=== PATIENT | female | born 1965 | race Caucasian/White ===

== ENCOUNTER → 2021-08-04 | Day surgery (SDC) | payer OTHER ==
[2021-08-02 07:40] LABS: Basophils # (auto) 0.1 10 ^3/uL (0-0.2); Eosinophils # (auto) 0.3 10 ^3/uL (0-0.8); Eosinophils % (auto) 4.9 % (0.0-7.0); Hemoglobin 13.9 g/dL (12.2-16.2); Lymphocytes # (auto) 1.8 10 ^3/uL (0.4-5.4); Lymphocytes % (auto) 31.6 % (10.0-50.0); Mean Corpuscular Hemoglobin 29.6 pg (28.0-32.0); Mean Corpuscular Hgb Conc. 33.1 g/dL (32.0-36.0); Mean Corpuscular Volume 89.3 fL (80.0-100.0); Monocytes # (auto) 0.4 10 ^3/uL (0-1.3); Monocytes % (auto) 7.5 % (0.0-12.0); Neutrophils # (auto) 3.1 10 ^3/uL (1.6-8.6); Red Cell Distribution Width 13.7 % (11.8-14.3); White Blood Cell 5.6 10^3/uL (4.4-10.8)
[2021-08-02 07:56] LABS: INR 0.94 (0.9-1.15); Partial Thromboplastin Time 27.6 sec (23.6-33.0)
[2021-08-02 08:00] LABS: Potassium 4.2 mmol/L (3.5-5.1)
[2021-08-02 08:06] LABS: Albumin 4.1 g/dL (3.4-5.0); BUN/Creatinine Ratio 14.9; Bilirubin, Total 0.6 mg/dL (0.2-1.0); Calcium 10.1 mg/dL (8.5-10.1); Total Protein 7.1 g/dL (6.4-8.2)
[~2021-08-04] VITALS: Ht 167.6 cm; Wt 86.2 kg
[~2021-08-04] MED LIST: LIDOCAINE VISCOUS 2% 15ML UD ONE; OMEP-434 PO
[2021-08-04] MEDS: diphenhdrAMINE HCL 50 MG/1 ML VL ONE ×2 (14:06→14:09)
[2021-08-04] MEDS: MIDAZOLAM HCL 5 MG/ML-1ML VIAL ONE ×3 (14:06→14:12)
[2021-08-04] MEDS: fentaNYL CITRATE 100 MCG/2 ML VL ONE ×2 (14:06→14:09)
[2021-08-04 14:45] VITALS: BP 111/67
== END | disposition home or self-care (01) ==
LOC: GI 12:34
PROVIDERS: ATTEND Internal Medicine Gastroenterology
DX: K21.9 Gastro-esophageal reflux disease without esophagitis (principal)
CPT/HCPCS: 36415; 43239; 80053; 85025; 85610; 85730; 88305; 88342; J1200; J2250; J3010; J7030; U0003; 99152

== ENCOUNTER 2021-11-03 12:26 | Day surgery (SDC) | payer OTHER ==
[2021-11-01 14:30] LABS: Basophils # (auto) 0 10 ^3/uL (0-0.2); Basophils % (auto) 0.6 % (0.0-2.0); Eosinophils # (auto) 0.2 10 ^3/uL (0-0.8); Eosinophils % (auto) 2.8 % (0.0-7.0); Hematocrit 38.6 % (36.0-46.0); Hemoglobin 13.3 g/dL (12.2-16.2); Lymphocytes # (auto) 1.7 10 ^3/uL (0.4-5.4); Lymphocytes % (auto) 26.2 % (10.0-50.0); Mean Corpuscular Hemoglobin 30.7 pg (28.0-32.0); Mean Corpuscular Hgb Conc. 34.5 g/dL (32.0-36.0); Mean Corpuscular Volume 89.2 fL (80.0-100.0); Monocytes # (auto) 0.4 10 ^3/uL (0-1.3); Monocytes % (auto) 5.5 % (0.0-12.0); Neutrophils # (auto) 4.2 10 ^3/uL (1.6-8.6); Neutrophils % (auto) 64.9 % (37.0-80.0); Nucleated Red Blood Cells % 0.1 %; Red Blood Cells 4.33 10^6/uL (4.0-5.20); Red Cell Distribution Width 13.4 % (11.8-14.3); White Blood Cell 6.5 10^3/uL (4.4-10.8)
[2021-11-01 14:47] LABS: INR 0.99 (0.9-1.15)
[2021-11-01 15:17] LABS: BUN/Creatinine Ratio 13.3; Calcium 9.2 mg/dL (8.5-10.1)
[2021-11-01 15:20] LABS: Bilirubin, Total 0.3 mg/dL (0.2-1.0); Total Protein 7.3 g/dL (6.4-8.2)
[~2021-11-03] VITALS: Ht 167.6 cm; Wt 86.2 kg
[~2021-11-03 12:26] MED LIST changes: -LIDOCAINE VISCOUS 2% 15ML UD ONE
[2021-11-03] MEDS ORDERED: SODIUM CHLORIDE LOCK 10 ML ONE (12:40)
[2021-11-03] MEDS ORDERED: diphenhdrAMINE HCL 50 MG/1 ML VL ONE (12:41)
[2021-11-03] MEDS: MIDAZOLAM HCL 5 MG/ML-1ML VIAL ONE ×3 (12:53→13:59)
[2021-11-03] MEDS: fentaNYL CITRATE 100 MCG/2 ML VL ONE ×5 (13:53→14:08)
[2021-11-03 14:40] VITALS: BP 133/70
== END 2021-11-03 14:50 | disposition home or self-care (01) ==
LOC: GI 12:26
PROVIDERS: ATTEND Internal Medicine Gastroenterology
DX: Z12.11 Encounter for screening for malignant neoplasm of colon (principal); Z87.19 Personal history of other diseases of the digestive system; K63.5 Polyp of colon; K57.30 Diverticulosis of large intestine without perforation or abscess without bleeding; K21.9 Gastro-esophageal reflux disease without esophagitis; Z90.89 Acquired absence of other organs; Z90.710 Acquired absence of both cervix and uterus; Z98.890 Other specified postprocedural states; Z79.899 Other long term (current) drug therapy; Z20.822 Contact with and (suspected) exposure to COVID-19
CPT/HCPCS: 36415; 45380; 80053; 85025; 85610; 85730; 88305; J1200; J2250; J3010; J7030; U0003; 99152